=== PATIENT | female | born 1965 | race American Indian/Alaskan Native ===

== ENCOUNTER 2016-10-30 19:25 | Emergency (ER) | payer OTHER ==
[2016-10-30 20:01] LABS: Basophils % (Auto) 0.7 % (0.0-1.8); Hematocrit 41.9 % (30.3-42.9); Hemoglobin 13.5 gm/dl (10.1-14.3); Mean Corpuscular HGB Conc 32 % (30-34); Mean Corpuscular Hemoglobin 27 pg (28-32); Mean Corpuscular Volume 83 fl (79-97); Platelet Count 374 K/mm3 (140-440); Red Blood Count 5.03 M/mm3 (3.65-5.03); Red Cell Distribution Width 14.1 % (13.2-15.2); White Blood Count 14.2 K/mm3 (4.5-11.0)
[2016-10-30 20:16] LABS: Anion Gap 19 mmol/L; BUN/Creatinine Ratio 24.28; Blood Urea Nitrogen 17 mg/dL (7-17); Calcium 9.4 mg/dL (8.4-10.2); Carbon Dioxide 26 mmol/L (22-30); Glucose 106 mg/dL (65-100); Potassium 3.5 mmol/L (3.6-5.0); Sodium 139 mmol/L (137-145)
[2016-10-30] MEDS ORDERED: XYLOCAINE 2%/EPI 1:100,000 INFILTRATI ONE (21:14)
[2016-10-30] MEDS ORDERED: AFRIN NS ONE (21:14)
--- NOTE | 2016-10-30 22:19 | Emergency Department Report ---
HPI - General Chief Complaint: Nosebleed Time Seen by Provider: 10/30/16 20:35 - HPI HPI: The patient is a 51-year-old female presents for evaluation of nosebleed. The patient reports nosebleed since 6 PM, 2 hours prior to my evaluation, constant since onset, severe, improved with pinching of the nose. Patient denies trauma to the nose, easy bruising or bleeding, recurrent epistaxis, hemoptysis, hematemesis, hematuria, blood thinner use. ED Past Medical Hx - Past Medical History Previous Medical History?: Yes Hx Hypertension: Yes - Surgical History Past Surgical History?: Yes Additional Surgical History: C SECTION / HYSTERECTOMY - Social History Smoking Status: Never Smoker Substance Use Type: Alcohol - Medications Home Medications: Home Medications Medication Instructions Recorded Confirmed Last Taken Type Acetaminophen [Tylenol] 1,000 mg PO Q6HR #30 tablet 10/31/16 Unknown Rx Amoxicillin/K Clav Tab [Augmentin 1 tab PO Q12HR #10 tab 10/31/16 Unknown Rx 875 mg] ED Review of Systems ROS: Stated complaint: NOSE BLEED Other details as noted in HPI Constitutional: denies: fever ENT: reprots nose bleeding denies: throat or neck pain Respiratory: denies: cough, shortness of breath Cardiovascular: denies: chest pain Endocrine: denies unexplained weight loss or gain Gastrointestinal: denies: abdominal pain, nausea Genitourinary: denies: dysuria Musculoskeletal: denies: leg swelling Skin: denies: rash Neurological: denies: headache Hematological/Lymphatic: denies: easy bleeding or easy bruising Psych: denies sadness or hopelessness Physical Exam - Physical Exam Vital Signs: Vital Signs 10/30/16 19:35 Temperature 98.2 F Respiratory 16 Rate Blood Pressure 189/132 O2 Sat by Pulse 99 Oximetry Physical Exam: General: well-nourished, well-developed, no acute distress Head: Normocephalic, atraumatic Eyes: normal sclera ENT: acute bleeding present to the left nasal septum Neck: trachea midline, neck supple, No neck stiffness, no cervical adenopathy Respiratory: Breath sounds equal bilaterally, no wheezing, rales, or rhonchi Cardio: S1 and S2 present, no murmurs, rubs, gallops, capillary refill is brisk Abdomen: Normoactive bowel sounds, soft abdomen, no rigidity, no guarding or rebound tenderness Musc: No pitting edema Skin: No rash Neuro: no facial drooping, normal speech Psych: Normal affect ED Course Vital Signs 10/30/16 19:35 Temperature 98.2 F Respiratory 16 Rate Blood Pressure 189/132 O2 Sat by Pulse 99 Oximetry - Procedure Description Procedures done: Procedure: Nasal packing for epistaxis. Merocel nasal packing was inserted into the left nare in a medial posterior direction, in line with with the tragus of the ear, patient in upright sniffing position. The patient tolerated the procedure well. Bleeding was controlled. ED Medical Decision Making - Lab Data Result diagrams: 10/30/16 19:45 10/30/16 19:45 - Medical Decision Making The patient was seen and examined by myself. The patient is placed on a desk monitor and continuous pulse ox. On initial evaluation, the patient was found to be in no distress. Evaluation orders were placed. The patient is given IV labetalol for elevated blood pressure. Afrin and lidocaine with epinephrine placed a left nasal septum, along with nasal pincher and ice pack. Lab results reveal normal hemoglobin, hematocrit, platelet level, and coags. The patient is reevaluated after 1 hour and epistaxis recurs. Anterior nasal packing is placed to the left nare. Bleeding persists despite packing. A posterior epistat packing is placed. Bleeding persists despite posterior nasal packing. As the patient's epistaxis is intractable, the patient will be transferred to a facility with ENT. Merocel packing is replaced of the left nare, and nasal pincher and ice are re-applied to nasal bridge. The patient is given a tablet of Augmentin. [facility] was lacking ENT coverage. [facility] was consulted. The patient was re-evaluated and found to have resolution of nasal bleeding. The patient requested discharge home. The patient is given a prescription for Augmentin and discharged in stable condition. Critical care attestation.: If time is entered above; I have spent that time in minutes in the direct care of this critically ill patient, excluding procedure time. ED Disposition Clinical Impression: Anterior epistaxis, Hypertensive urgency Disposition: DISCHARGED TO HOME OR SELFCARE Is pt being admited?: No Does the pt Need Aspirin: No Condition: Stable Instructions: Epistaxis (ED), Chronic Hypertension (ED) Additional Instructions: Make sure to follow up with an ENT doctor within 2 days for removal of your nasal packing. Make sure to take antibiotics. Return to an ER immediately should you develop reocurrence of bleeding, fever, or difficulty breathing, or an other concerning symptoms. Prescriptions: Acetaminophen [Tylenol] 1,000 mg PO Q6HR #30 tablet Amoxicillin/K Clav Tab [Augmentin 875 mg] 1 tab PO Q12HR #10 tab Referrals: AMOS VALLEJO MD [Staff Physician] - 3-5 Days Forms: Work/School Release Form(ED) Time of Disposition: 22:04
[2016-10-31] MEDS ORDERED: NORMODYNE IV ONE ×2 (00:01→02:16)
[2016-10-31] MEDS ORDERED: NACL 0.9% 1000 ML 1,000 ML ONE (00:18)
[2016-10-31] MEDS ORDERED: TYLENOL ONE (00:36)
[2016-10-31] MEDS ORDERED: TYLENOL PO ONE (00:40)
[2016-10-31] MEDS ORDERED: TRIPLE ANTIBIOTIC TP ONE ×2 (00:56→04:58)
[2016-10-31] MEDS ORDERED: NACL 0.9% 1000 ML 1,000 ML IV ONE (00:57)
[2016-10-31] MEDS ORDERED: SUBLIMAZE ONE (00:58)
[2016-10-31] MEDS ORDERED: SUBLIMAZE IV ONE ×2 (01:00→03:44)
[2016-10-31] MEDS ORDERED: AUGMENTIN 875 MG PO ONE (01:26)
[2016-10-31 02:07] LABS: INR 0.99 (0.87-1.13)
[2016-10-31 02:08] LABS: Partial Thromboplastin Time 25.6 Sec. (24.2-36.6)
[2016-10-31] MEDS ORDERED: BENADRYL IV ONE (03:44)
[2016-10-31] MEDS ORDERED: REGLAN IV ONE (03:44)
[2016-10-31] MEDS ORDERED: APRESOLINE IV ONE (03:45)
[2016-10-31 05:11] VITALS: BP 96/59
== END 2016-10-31 05:33 | disposition home or self-care (01) ==
LOC: ED 19:25
DX: R04.0 Epistaxis (principal); I10 Essential (primary) hypertension
CPT/HCPCS: 30905; 36415; 80048; 85025; 85610; 85730; 86850; 86900; 86901; 96361; 96374; 96375; 96376; 99284; J0360; J1200; J2765; J3010; J7030; A6250

== ENCOUNTER 2018-08-24 13:31 | Outpatient (CLI) | payer OTHER ==
--- NOTE | 2018-08-24 15:13 | Cat Scan Report ---
CT HEAD WITHOUT CONTRAST: HISTORY: TIA. TECHNIQUE: Sequential 2.5mm CT images. COMPARISON: none. FINDINGS: Cerebral Parenchyma: Within normal limits. Cerebellum: Within normal limits. Brainstem: Within normal limits. Ventricles: Normal. Sella: Normal. Extra-axial spaces: Normal. Basal Cisterns: Normal. Intracranial Hemorrhage: None. Midline Shift: None. Calvarium: Normal. Sinuses: Normal. Mastoid Air Cells: Normal. Visualized Orbits: Normal. IMPRESSION: Cranial CT scan within normal limits.
== END 2018-08-24 13:32 | disposition home or self-care (01) ==
LOC: CT 13:31
PROVIDERS: ATTEND General Practice
DX: I63.9 Cerebral infarction, unspecified (principal); R55 Syncope and collapse; I10 Essential (primary) hypertension; Z90.710 Acquired absence of both cervix and uterus
CPT/HCPCS: 70450